=== PATIENT | female | born 1985 ===

== ENCOUNTER 2017-01-19 23:42 | Emergency (ER) | payer OTHER ==
[2017-01-20] MEDS ORDERED: Sodium Chloride 0.9% 1,000 ML IV STA (00:19)
--- NOTE | 2017-01-20 00:21 | ED PDOC ---
HPI: Back Time Seen by Provider: 01/20/17 00:00 Chief Complaint (Nursing): Back Pain Chief Complaint (Provider): Back Pain History Per: Patient Additional Complaint(s): 31 yo female, no PMH, presents to ED for evaluation of lower back pain x 4 days. Patient reports vaginal bleeding x 2 weeks now, prior to the onset of her current menses on January 03, her LMP was October. Pt concerned she might be Past Medical History Reviewed: Nursing Documentation, Vital Signs Vital Signs: Last Vital Signs Temp 98.2 F 01/19/17 23:52 Pulse 83 01/19/17 23:52 Resp 16 01/19/17 23:52 BP 150/85 01/19/17 23:52 Pulse Ox 100 01/19/17 23:52 - Medical History PMH: No Chronic Diseases Denies: Chronic Kidney Disease - Surgical History Surgical History: No Surg Hx - Family History Family History: States: Unknown Family Hx - Living Arrangements Living Arrangements: With Family - Social History Current smoker - smoking cessation education provided: No Alcohol: None Drugs: Denies - Home Medications Home Medications: Ambulatory Orders Medication Instructions Recorded Famotidine [Pepcid] 20 mg PO DAILY PRN #10 tab 12/26/15 Azithromycin [Zithromax] 250 mg PO DAILY #6 tab 10/19/16 Promethazine/Codeine 5 ml PO Q8 #60 ml 10/19/16 [Codeine/Promethazine 10 MG/5 Ml-6.25 MG/5 Ml] - Allergies Allergies/Adverse Reactions: Allergies Allergy/AdvReac Type Severity Reaction Status Date / Time No Known Allergies Allergy Verified 01/19/17 23:52 Review of Systems ROS Statement: Except As Marked, All Systems Reviewed And Found Negative Gastrointestinal: Positive for: Abdominal Pain Genitourinary Female: Positive for: Vaginal Bleeding Physical Exam - Reviewed Nursing Documentation Reviewed: Yes Vital Signs Reviewed: Yes - Physical Exam Appears: Positive for: Well, Non-toxic, No Acute Distress Head Exam: Positive for: ATRAUMATIC, NORMAL INSPECTION, NORMOCEPHALIC Skin: Positive for: Normal Color, Warm, DRY Eye Exam: Positive for: EOMI, Normal appearance, PERRL ENT: Positive for: Normal ENT Inspection Neck: Positive for: Normal, Painless ROM Cardiovascular/Chest: Positive for: Regular Rate, Rhythm Respiratory: Positive for: CNT, Normal Breath Sounds Gastrointestinal/Abdominal: Positive for: Normal Exam, Bowel Sounds, Soft. Negative for: Tenderness Pelvic Exam: Positive for: External Exam Normal, Blood. Negative for: No Cerv. Motion Tender, No Masses, Active Bleeding Back: Positive for: Normal Inspection, Other (LS paraspinal tenderness). Negative for: L CVA Tenderness, R CVA Tenderness Extremity: Positive for: Normal ROM Neurologic/Psych: Positive for: Alert, Oriented - Laboratory Results Result Diagrams: 01/20/17 00:53 01/20/17 00:53 - ECG O2 Sat by Pulse Oximetry: 100 Medical Decision Making Medical Decision Making: Blood type O+ Beta 165 UA: (+) blood, (-) leuks or nites. US IMPRESSION: No intrauterine gestation is identified. Large amount of complex fluid in the cul-de-sac. No definitive ectopic identified. Low beta hCG noted. Differential includes early normal , ectopic , loss. Close followup imaging, and serial beta hCG is advised. Noted large amount of complex free fluid in the cul-de-sac, if there is very high clinical suspicion consider other evaluation. Pt doing well on re-eval after Tylenol PO for pain. Bleeding is minimal on re-eval. Miscarriage vs. early preg vs. ectopic discussed at length. Advised to return to ED in 3 days for repeat Beta, return sooner if at anytime symptoms worsen Disposition - Clinical Impression Clinical Impression: Threatened - Patient ED Disposition Is Patient to be Admitted: No - Disposition Disposition: Routine/Home Disposition Time: 03:35 Condition: GOOD Instructions: Threatened Miscarriage (ED) Print Language: KYRGYZ
[2017-01-20 01:11] LABS: BASO % 0.3 % (0.0-2.0); EOS # 0.2 K/uL (0.0-0.7); EOS % 3.6 % (0.0-4.0); HEMATOCRIT 42.9 % (34.0-47.0); LYMPH # 2.9 K/uL (1.0-4.3); LYMPH % 44.6 % (20.0-40.0); MEAN CORPUSCULAR HEMOGLOBIN 30.7 pg (27.0-31.0); MEAN CORPUSCULAR HGB CONC 33.3 g/dL (33.0-37.0); MEAN PLATELET VOLUME 9.6 fl (7.2-11.7); MONO # 0.8 K/uL (0.0-0.8); MONO % 12.2 % (0.0-10.0); NEUT # 2.6 K/uL (1.8-7.0); NEUT % 39.3 % (50.0-75.0); NRBC % 0.1 % (0.0-0.0); RED CELL DISTRIBUTION WIDTH 13.2 % (11.5-14.5); WHITE BLOOD COUNT 6.5 K/uL (4.8-10.8)
[2017-01-20 01:22] LABS: RBC URINE 115 /hpf (0-3); URINE BACTERIA RARE (<OCC); URINE BILIRUBIN NEGATIVE (NEGATIVE); URINE BLOOD LARGE (NEGATIVE); URINE COLOR YELLOW (YELLOW); URINE GLUCOSE (UA) NEG (Normal); URINE KETONE NEGATIVE (NEGATIVE); URINE LEUKOCYTE ESTERASE NEG Leu/uL (Negative); URINE PROTEIN NEGATIVE (NEGATIVE); URINE UROBILINOGEN 0.2-1.0 mg/dL (0.2-1.0); WBC URINE 2 /hpf (0-5)
[2017-01-20 01:24] LABS: ALB/GLOB RATIO 1.2 (1.0-2.1); ALKALINE PHOSPHATASE 74 U/L (38-126); ALT/SGPT 45 U/L (9-52); AST/SGOT 31 U/L (14-36); BILIRUBIN,TOTAL 0.8 mg/dl (0.2-1.3); BLOOD UREA NITROGEN 18 mg/dl (7-17); CALCIUM 9.1 mg/dL (8.4-10.2); CARBON DIOXIDE 25 mmol/L (22-30); CHLORIDE 102 mmol/L (98-107); GFR AFRICAN-AMERICAN > 60; GLUCOSE,RANDOM 96 mg/dL (65-105); POTASSIUM 3.7 MMOL/L (3.6-5.0); SODIUM 143 mmol/l (132-148); TOTAL PROTEIN 7.9 G/DL (6.3-8.2)
--- NOTE | 2017-01-20 02:59 | US ---
EXAM: US , Transvaginal CLINICAL HISTORY: 31 years old, female; Pain; complicated by abdominal or pelvic pain; Lower; First trimester; Gestational age or lmp: 11/19/2016; ; Additional info: R/O ectopic TECHNIQUE: Real-time transvaginal obstetrical ultrasound of the maternal pelvis and a first trimester with image documentation. Transvaginal imaging was used for better evaluation of the fetus and adnexa. EXAM DATE/TIME: Exam ordered 01/20/2017 1:10 AM COMPARISON: No relevant prior studies available. FINDINGS: Beta-hCG level: The ultrasound worksheet is beta hCG of 165.84. Gestation: The gestation is not identified noting the low beta hCG Placenta/amniotic fluid: Cannot be adequately evaluated due to the early gestational age. Uterus/cervix: The endometrium is 5 mm. There is trace fluid seen in the lower uterine segment. The uterus measures 6.1 x 3.2 x 4.1 cm. No myometrial mass. Ovaries: The right ovary measures 2.9 x 2.2 x 2.7 cm. The right ovary contains multiple small cystic findings favored to represent normal follicles. Doppler flow is normal, no evidence of torsion The left ovary measures 2.8 x 2.2 x 1.4 cm. The left ovary contains multiple small cystic findings which are partly anechoic and partly contained echogenic non-shadowing material. There is Doppler flow in the left ovary and there is no finding to suggest left ovarian torsion. No mass. Free fluid: There is a moderate to large amount of complex fluid seen in the cul-de-sac. IMPRESSION: No intrauterine gestation is identified. Large amount of complex fluid in the cul-de-sac. No definitive ectopic identified. Low beta hCG noted. Differential includes early normal , ectopic , loss. Close followup imaging, and serial beta hCG is advised. Noted large amount of complex free fluid in the cul-de-sac, if there is very high clinical suspicion consider other evaluation.
[2017-01-20 03:32] VITALS: BP 123/67; PULSE 71; RESP 17; TEMP 97.9
[2017-01-20 03:34] VITALS: O2SAT 100
== END 2017-01-20 03:32 | disposition home or self-care (01) ==
LOC: H.ER 23:42
DX: O20.0 Threatened abortion (principal); R10.2 Pelvic and perineal pain

== ENCOUNTER 2017-01-23 18:30 | Emergency (ER) | payer OTHER ==
[2017-01-23 18:40] VITALS: BP 140/77; PULSE 70; RESP 19; TEMP 98.5; O2SAT 100
[2017-01-23 19:51] LABS: HEMATOCRIT 44.4 % (34.0-47.0); MEAN CELL VOLUME 92.5 fl (81.0-99.0); MEAN CORPUSCULAR HEMOGLOBIN 30.5 pg (27.0-31.0); RED CELL DISTRIBUTION WIDTH 12.8 % (11.5-14.5); WHITE BLOOD COUNT 6.7 K/uL (4.8-10.8)
--- NOTE | 2017-01-23 19:53 | ED PDOC ---
HPI: Abdomen Time Seen by Provider: 01/23/17 18:40 Chief Complaint (Nursing): Abdominal Pain Chief Complaint (Provider): Suprapubic pain, vaginal bleeding History Per: Patient History/Exam Limitations: no limitations Onset/Duration Of Symptoms: Days (3 weeks ) Current Symptoms Are (Timing): Still Present Location Of Pain/Discomfort: Suprapubic Quality Of Discomfort: Sharp, Cramping Additional Complaint(s): PT seen 2 days ago. Beta 163. no IUP on US. Pt states she is bleeding heavier today. Pt did not follow-up out-patient. Pt states bleeding is similar to menses. Past Medical History Reviewed: Historical Data, Nursing Documentation, Vital Signs Vital Signs: Last Vital Signs Temp 98.5 F 01/23/17 18:37 Pulse 70 01/23/17 18:37 Resp 19 01/23/17 18:37 BP 140/77 01/23/17 18:37 Pulse Ox 100 01/23/17 18:37 - Medical History PMH: No Chronic Diseases Denies: Chronic Kidney Disease - Surgical History Surgical History: No Surg Hx - Family History Family History: States: Unknown Family Hx - Home Medications Home Medications: Ambulatory Orders Medication Instructions Recorded Famotidine [Pepcid] 20 mg PO DAILY PRN #10 tab 12/26/15 Azithromycin [Zithromax] 250 mg PO DAILY #6 tab 10/19/16 Promethazine/Codeine 5 ml PO Q8 #60 ml 10/19/16 [Codeine/Promethazine 10 MG/5 Ml-6.25 MG/5 Ml] - Allergies Allergies/Adverse Reactions: Allergies Allergy/AdvReac Type Severity Reaction Status Date / Time No Known Allergies Allergy Verified 01/19/17 23:52 Review of Systems ROS Statement: Except As Marked, All Systems Reviewed And Found Negative Genitourinary Female: Positive for: Vaginal Bleeding, Pelvic Pain Physical Exam - Reviewed Nursing Documentation Reviewed: Yes Vital Signs Reviewed: Yes - Physical Exam Appears: Positive for: Well, Non-toxic, No Acute Distress Head Exam: Positive for: ATRAUMATIC, NORMAL INSPECTION, NORMOCEPHALIC Skin: Positive for: Normal Color, Warm, DRY Eye Exam: Positive for: Normal appearance ENT: Positive for: Normal ENT Inspection Neck: Positive for: Normal, Painless ROM Cardiovascular/Chest: Positive for: Regular Rate, Rhythm Respiratory: Positive for: CNT, Normal Breath Sounds Gastrointestinal/Abdominal: Positive for: Normal Exam, Bowel Sounds, Soft Back: Positive for: Normal Inspection Extremity: Positive for: Normal ROM Neurologic/Psych: Positive for: Alert, Oriented - ECG O2 Sat by Pulse Oximetry: 100 Disposition - Clinical Impression Clinical Impression: Threatened - Patient ED Disposition Is Patient to be Admitted: Transfer of Care - Disposition Disposition: Transfer of Care Disposition Time: 19:53 Condition: STABLE
[2017-01-23 20:09] LABS: ALB/GLOB RATIO 1.1 (1.0-2.1); ALKALINE PHOSPHATASE 72 U/L (38-126); ALT/SGPT 41 U/L (9-52); AST/SGOT 46 U/L (14-36); BILIRUBIN,TOTAL 0.9 mg/dl (0.2-1.3); BLOOD UREA NITROGEN 17 mg/dl (7-17); CALCIUM 9.3 mg/dL (8.4-10.2); CARBON DIOXIDE 24 mmol/L (22-30); CHLORIDE 104 mmol/L (98-107); GFR AFRICAN-AMERICAN > 60; GLUCOSE,RANDOM 94 mg/dL (65-105); POTASSIUM 4.1 MMOL/L (3.6-5.0); SODIUM 142 mmol/l (132-148); TOTAL PROTEIN 8.4 G/DL (6.3-8.2)
--- NOTE | 2017-01-23 20:14 | ED PDOC ---
- Laboratory Results Result Diagrams: 01/23/17 19:46 01/23/17 19:46 - ECG O2 Sat by Pulse Oximetry: 100 Pulse Ox Interpretation: Normal - Progress ED Course And Treament: Case was signed out to verse writer from [facility] pending labs and US. Medical Decision Making Medical Decision Making: US: FINDINGS: Uterus/cervix: Measured at 7.5 x 3.3 x 3.9. Normal endometrial stripe thickness measured at 5 mm. Small amount of fluid in the cervical canal. Right ovary: Measured at 3.3 x 2.5 x 2.4. 1.8 cm dominant follicle/cyst. Normal blood flow. Left ovary: Measured at 2.4 x 1.8 x 2.6. Complex hyperechoic focus measured at 3.1 cm. Normal blood flow. Free fluid: Notable amount of complex fluid in the cul-de-sac. IMPRESSION: No intrauterine gestation identified. Findings as above including notable amount of complex fluid in the cul-de-sac. Correlate clinically. Again, serial ultrasound and beta hCG recommended. Beta on 01/20/17 was 163 Beta today is 127 Patient aware of above findings. Advised follow up with clinic in 2 days. Patient is aware she can RTED at any time if acutely worse. Disposition - Clinical Impression Clinical Impression: Threatened - POA Present On Arrival: None - Disposition Referrals: Heladio Jimenez MD [Primary Care Provider] - [facility]] Disposition: Routine/Home Disposition Time: 21:50 Condition: STABLE Additional Instructions: Tylenol for pain as needed. Drink plenty of fluids. Follow up with [facility] clinic in 2-3 days or return any time if acutely worse. Instructions: Threatened Miscarriage (ED)
[2017-01-23 20:48] LABS: PARTIAL THROMBOPLASTIN TIME 27.5 SECONDS (23.3-32.5)
--- NOTE | 2017-01-23 21:40 | US ---
EXAM: US Pelvis, Transvaginal CLINICAL HISTORY: 31 years old, female; Signs and symptoms; Menstruation abnormalities; Other: Bleeding; Additional info: Vaginal bleeding in , ? misscarriage TECHNIQUE: Real-time transvaginal pelvic ultrasound (complete) with image documentation. Transvaginal imaging was used for better evaluation of the endometrium and adnexa. COMPARISON: US - OB TRANSVAGINAL 01/20/2017 2:13:24 AM FINDINGS: Uterus/cervix: Measured at 7.5 x 3.3 x 3.9. Normal endometrial stripe thickness measured at 5 mm. Small amount of fluid in the cervical canal. Right ovary: Measured at 3.3 x 2.5 x 2.4. 1.8 cm dominant follicle/cyst. Normal blood flow. Left ovary: Measured at 2.4 x 1.8 x 2.6. Complex hyperechoic focus measured at 3.1 cm. Normal blood flow. Free fluid: Notable amount of complex fluid in the cul-de-sac. IMPRESSION: No intrauterine gestation identified. Findings as above including notable amount of complex fluid in the cul-de-sac. Correlate clinically. Again, serial ultrasound and beta hCG recommended.
== END 2017-01-23 22:17 | disposition home or self-care (01) ==
LOC: H.ER 18:30
DX: O20.0 Threatened abortion (principal)

== ENCOUNTER 2017-11-23 08:45 | Emergency (ER) | payer SELFPAY ==
[2017-11-23 08:48] VITALS: BMI 23.6
[2017-11-23 08:49] VITALS: BP 121/65; PULSE 75; RESP 18; TEMP 98; O2SAT 99
--- NOTE | 2017-11-23 09:42 | ED PDOC ---
HPI: General Adult Time Seen by Provider: 11/23/17 09:14 Chief Complaint (Nursing): Flu-like Symptoms Chief Complaint (Provider): Eye Problem, Runny Nose, Congestion History Per: Patient History/Exam Limitations: no limitations Onset/Duration Of Symptoms: Days (x 4) Current Symptoms Are (Timing): Still Present Additional Complaint(s): Laureen is a 32 y/o female with no past medical history who presents to the ED complaining of red, watery eyes, runny nose, congestion,cough, and facial pain for the past 4 days. She denies nausea, vomiting, diarrhea, or abdominal pain. Of note, patient works in a daycare. No headaches, weakness, neck pain. No leg pain. No injury to eyes. No vision changes. No numbness, tingles. Past Medical History Reviewed: Historical Data, Nursing Documentation, Vital Signs Vital Signs: Last Vital Signs Temp 98 F 11/23/17 08:49 Pulse 75 11/23/17 08:49 Resp 18 11/23/17 08:49 BP 121/65 11/23/17 08:49 Pulse Ox 99 11/23/17 09:46 - Medical History PMH: No Chronic Diseases Denies: Chronic Kidney Disease - Surgical History Surgical History: No Surg Hx - Family History Family History: States: Unknown Family Hx - Social History Current smoker - smoking cessation education provided: No Alcohol: None Drugs: Denies - Home Medications Home Medications: Ambulatory Orders Medication Instructions Recorded Famotidine [Pepcid] 20 mg PO DAILY PRN #10 tab 12/26/15 Azithromycin [Zithromax] 250 mg PO DAILY #6 tab 10/19/16 Promethazine/Codeine 5 ml PO Q8 #60 ml 10/19/16 [Codeine/Promethazine 10 MG/5 Ml-6.25 MG/5 Ml] Benzonatate [Tessalon Perles] 100 mg PO BID PRN 5 Days sgl 11/23/17 Ibuprofen [Motrin] 600 mg PO TID 7 Days tab 11/23/17 Polymyxin/Trimethoprim Sulfate 2 drop RIGHTEYE Q6H 7 Days bottle 11/23/17 [Polytrim Ophth Soln] - Allergies Allergies/Adverse Reactions: Allergies Allergy/AdvReac Type Severity Reaction Status Date / Time No Known Allergies Allergy Verified 01/19/17 23:52 Review of Systems ROS Statement: Except As Marked, All Systems Reviewed And Found Negative Eyes: Positive for: Conjunctivae Inflammation, Redness ENT: Positive for: Nose Discharge, Nose Congestion, Other (Facial pain) Respiratory: Positive for: Cough Gastrointestinal: Negative for: Nausea, Vomiting, Abdominal Pain, Diarrhea Physical Exam - Reviewed Nursing Documentation Reviewed: Yes Vital Signs Reviewed: Yes - Physical Exam Appears: Positive for: Non-toxic, No Acute Distress Head Exam: Positive for: ATRAUMATIC, NORMAL INSPECTION, NORMOCEPHALIC Skin: Positive for: Normal Color, Warm, Dry Eye Exam: Positive for: EOMI, PERRL, Conjunctival injection (right). Negative for: Nystagmus, Periorbital swelling, Periorbital tenderness ENT: Positive for: Nasal Congestion. Negative for: Pharyngeal Erythema, Tonsillar Exudate Neck: Positive for: Normal, Painless ROM, Supple Cardiovascular/Chest: Positive for: Regular Rate, Rhythm. Negative for: Murmur Respiratory: Positive for: Normal Breath Sounds. Negative for: Respiratory Distress Gastrointestinal/Abdominal: Positive for: Normal Exam, Bowel Sounds, Soft. Negative for: Tenderness Back: Positive for: Normal Inspection. Negative for: L CVA Tenderness, R CVA Tenderness Extremity: Positive for: Normal ROM. Negative for: Tenderness, Pedal Edema, Deformity Neurologic/Psych: Positive for: Alert, Oriented - ECG O2 Sat by Pulse Oximetry: 99 (RA) Pulse Ox Interpretation: Normal - Progress ED Course And Treament: 195: Stable. Visual acuity wnl. AAOx3. Feels better. Medical Decision Making Medical Decision Making: Time: 9:28 Initial Impression: Initial Plan: --Urine --Motrin --Flu Swab Scribe Attestation: Documented by Saúl Cruz, acting as a scribe for Armaan Rizvi MD Provider Scribe Attestation: All medical record entries made by the Scribe were at my direction and personally dictated by me. I have reviewed the chart and agree that the record accurately reflects my personal performance of the history, physical exam, medical decision making, and the department course for this patient. I have also personally directed, reviewed, and agree with the discharge instructions and disposition. Disposition - Clinical Impression Clinical Impression: URI (upper respiratory infection), Conjunctivitis - Patient ED Disposition Is Patient to be Admitted: No Counseled Patient/Family Regarding: Studies Performed, Diagnosis, Need For Followup, Rx Given - Disposition Referrals: [facility] [Outside] - 11/24/17 Disposition: Routine/Home Disposition Time: 11:08 Condition: STABLE Additional Instructions: Return if not better in 3 days. Prescriptions: Benzonatate [Tessalon Perles] 100 mg PO BID PRN 5 Days sgl PRN Reason: Cough Ibuprofen [Motrin] 600 mg PO TID 7 Days tab Polymyxin/Trimethoprim Sulfate [Polytrim Ophth Soln] 2 drop RIGHTEYE Q6H 7 Days bottle Instructions: Upper Respiratory Infection (ED), Conjunctivitis (ED) Print Language: FAROESE
== END 2017-11-23 11:17 | disposition home or self-care (01) ==
LOC: H.ER 08:45
DX: J06.9 Acute upper respiratory infection, unspecified (principal); H10.9 Unspecified conjunctivitis

== ENCOUNTER 2017-11-30 07:50 | Emergency (ER) | payer SELFPAY ==
[2017-11-30 08:06] VITALS: BP 105/65; PULSE 62; RESP 16; TEMP 98.4; O2SAT 97; BMI 22.6
--- NOTE | 2017-11-30 08:57 | ED PDOC ---
HPI: General Adult Time Seen by Provider: 11/30/17 08:49 Chief Complaint (Nursing): Flu-like Symptoms Chief Complaint (Provider): Flu-like Symptoms History Per: Patient History/Exam Limitations: no limitations Onset/Duration Of Symptoms: Days Current Symptoms Are (Timing): Still Present Additional Complaint(s): 32 year old female presents to the emergency department with a complaint of a fever, sore throat, body aches, headache, and chills for a couple of days. Denies any further medical complaints. Patient is not up to date with flu vaccine. PMD: Dr. Hilda aVughn MD Past Medical History Reviewed: Historical Data, Nursing Documentation, Vital Signs Vital Signs: Last Vital Signs Temp 98.4 F 11/30/17 08:05 Pulse 62 11/30/17 08:05 Resp 16 11/30/17 08:05 BP 105/65 11/30/17 08:05 Pulse Ox 97 11/30/17 08:59 - Medical History PMH: No Chronic Diseases Denies: Chronic Kidney Disease - Surgical History Surgical History: No Surg Hx - Family History Family History: States: Unknown Family Hx - Social History Current smoker - smoking cessation education provided: No Alcohol: None Drugs: Denies - Home Medications Home Medications: Ambulatory Orders Medication Instructions Recorded Famotidine [Pepcid] 20 mg PO DAILY PRN #10 tab 12/26/15 Azithromycin [Zithromax] 250 mg PO DAILY #6 tab 10/19/16 Promethazine/Codeine 5 ml PO Q8 #60 ml 10/19/16 [Codeine/Promethazine 10 MG/5 Ml-6.25 MG/5 Ml] Benzonatate [Tessalon Perles] 100 mg PO BID PRN 5 Days sgl 11/23/17 Ibuprofen [Motrin] 600 mg PO TID 7 Days tab 11/23/17 Polymyxin/Trimethoprim Sulfate 2 drop RIGHTEYE Q6H 7 Days bottle 11/23/17 [Polytrim Ophth Soln] Naproxen [Naprosyn] 500 mg PO BID PRN #20 tablet 11/30/17 Oseltamivir Phosphate [Tamiflu] 75 mg PO BID #10 capsule 11/30/17 - Allergies Allergies/Adverse Reactions: Allergies Allergy/AdvReac Type Severity Reaction Status Date / Time No Known Allergies Allergy Verified 01/19/17 23:52 Review of Systems ROS Statement: Except As Marked, All Systems Reviewed And Found Negative (As per HPI, otherwise negative) Constitutional: Positive for: Fever, Chills, Other (body aches) ENT: Positive for: Throat Pain Genitourinary Female: Negative for: Dysuria, Frequency, Hematuria Neurological: Positive for: Headache Physical Exam - Reviewed Nursing Documentation Reviewed: Yes - Physical Exam Appears: Positive for: No Acute Distress Head Exam: Positive for: NORMAL INSPECTION Skin: Positive for: Normal Color, Warm (to touch), Dry ENT: Positive for: Pharyngeal Erythema (mild redness of the throat). Negative for: Normal ENT Inspection Cardiovascular/Chest: Positive for: Regular Rate, Rhythm. Negative for: Murmur Respiratory: Positive for: Normal Breath Sounds. Negative for: Accessory Muscle Use, Respiratory Distress Neurologic/Psych: Positive for: Alert, Oriented (x3) - ECG O2 Sat by Pulse Oximetry: 97 (RA) Pulse Ox Interpretation: Normal Medical Decision Making Medical Decision Making: Time: 851 Initial Impression: Upper respiraotry infection (URI) rule out strep throat and influenza Initial Plan: --Urine DIP --Urine Preg --Influenza A B --Rapid Strep group --Reevaluation Scribe Attestation: Documented by Lucy Roger, acting as a scribe for Ileana Phillips MD. Provider Scribe Attestation: All medical record entries made by the Scribe were at my direction and personally dictated by me. I have reviewed the chart and agree that the record accurately reflects my personal performance of the history, physical exam, medical decision making, and the department course for this patient. I have also personally directed, reviewed, and agree with the discharge instructions and disposition. Disposition - Clinical Impression Clinical Impression: Influenza-like symptoms - Patient ED Disposition Is Patient to be Admitted: No Doctor Will See Patient In The: Office Counseled Patient/Family Regarding: Diagnosis, Need For Followup, Rx Given - Disposition Referrals: [facility] [Outside] [facility] [Outside] Disposition: Routine/Home Disposition Time: 09:52 Condition: STABLE Prescriptions: Naproxen [Naprosyn] 500 mg PO BID PRN #20 tablet PRN Reason: Pain, Moderate (4-7) Oseltamivir Phosphate [Tamiflu] 75 mg PO BID #10 capsule Instructions: Oseltamivir (By mouth) Forms: [facility] (Gambian) Print Language: GERMAN - POA Present On Arrival: None
== END 2017-11-30 10:06 | disposition home or self-care (01) ==
LOC: H.ER 07:50
DX: B34.9 Viral infection, unspecified (principal)